=== PATIENT | female | born 1945 | race Caucasian/White ===

== ENCOUNTER → 2017-04-05 | Outpatient (CLI) | payer MEDICARE, MEDICAID ==
[~2017-04-05] VITALS: Ht 30.5 cm; Wt 0.5 kg
[~2017-04-05] MED LIST: ALPR2TAB2 PO; AML5T PO; KETOROLAC TROMETH 30 MG/ML 1ML VIAL IV ONE; KETOROLAC TROMETH 60MG/2ML VIAL IM ONE; MORP15TA PO; ONDANSETRON HCL 4 MG/2 ML VIAL IV ONE; ONDANSETRON HCL 4 MG/2 ML VIAL ONE; PROM25TA5 IM; SODIUM CHLORIDE 0.9% 500 ML IV ONE
[2017-04-05 10:20] VITALS: BP 144/91
[2017-04-05 13:35] VITALS: BP 134/92
== END | disposition home or self-care (01) ==
LOC: CHF HDHVI 10:09
PROVIDERS: ATTEND Internal Medicine Cardiovascular Disease
DX: I50.9 Heart failure, unspecified (principal); R11.2 Nausea with vomiting, unspecified
CPT/HCPCS: 96361; 96372; 96374; 96375; G0463; J1885; J2405; 96360

== ENCOUNTER → 2017-04-08 | Outpatient (CLI) | payer MEDICARE, MEDICAID ==
[~2017-04-08] VITALS: Ht 30.5 cm; Wt 86.2 kg
[~2017-04-08] MED LIST changes: +CYANOCOBALAMIN (B-12) 1000 MCG/1 ML VIAL IM ONE; +CYANOCOBALAMIN (B-12) 1000 MCG/1 ML VIAL ONE; -KETOROLAC TROMETH 30 MG/ML 1ML VIAL IV ONE; -ONDANSETRON HCL 4 MG/2 ML VIAL IV ONE; -ONDANSETRON HCL 4 MG/2 ML VIAL ONE; +SODIUM CHLORIDE 0.9% 1,000 ML IV SCH; -SODIUM CHLORIDE 0.9% 500 ML IV ONE
[2017-04-08 13:10] VITALS: BP 114/90
[2017-04-08 16:29] LABS: Basophils # (auto) 0.1 uL; Basophils % (auto) 0.7 % (0.0-2.0); Eosinophils # (auto) 0.3 uL; Eosinophils % (auto) 3.9 % (0.0-7.0); Hemoglobin 14.7 g/dL (12.2-16.2); Lymphocytes % (auto) 25.6 % (10.0-50.0); Mean Corpuscular Hemoglobin 28.2 pg (28.0-32.0); Mean Corpuscular Hgb Conc. 32.7 g/dL (32.0-36.0); Mean Corpuscular Volume 86.3 fL (80.0-100.0); Mean Platelet Volume 8.3 fL (7.4-10.4); Monocytes # (auto) 0.7 uL; Monocytes % (auto) 9.2 % (0.0-12.0); Neutrophils # (auto) 4.6 uL; Neutrophils % (auto) 60.6 % (37.0-80.0); Platelet Count (auto) 347 10^3/uL (140-450); Red Cell Distribution Width 14.6 % (11.6-16.0); White Blood Cell 7.7 10^3/uL (4.4-10.8)
[2017-04-08 16:39] LABS: Potassium 3.8 mmol/L (3.5-5.1)
[2017-04-08 16:46] LABS: BUN/Creatinine Ratio 14.3; Calcium 9.4 mg/dL (8.5-10.1); Magnesium 2.1 mg/dL (1.6-2.6)
== END | disposition home or self-care (01) ==
LOC: CHF HDHVI 11:14
PROVIDERS: ATTEND Internal Medicine Cardiovascular Disease
DX: I10 Essential (primary) hypertension (principal); D64.9 Anemia, unspecified; E83.42 Hypomagnesemia
CPT/HCPCS: 36415; 80048; 83735; 85025; 96360; 96372; G0463; J1885

== ENCOUNTER → 2017-04-12 | Outpatient (CLI) | payer MEDICARE, MEDICAID ==
[~2017-04-12] MED LIST changes: -CYANOCOBALAMIN (B-12) 1000 MCG/1 ML VIAL IM ONE; -CYANOCOBALAMIN (B-12) 1000 MCG/1 ML VIAL ONE; -SODIUM CHLORIDE 0.9% 1,000 ML IV SCH
[2017-04-12 11:45] VITALS: BP 146/89
[2017-04-12 12:45] VITALS: BP 145/88
== END | disposition home or self-care (01) ==
LOC: LAB 11:25
PROVIDERS: ATTEND Internal Medicine Cardiovascular Disease
DX: I73.9 Peripheral vascular disease, unspecified (principal); I11.0 Hypertensive heart disease with heart failure; I50.9 Heart failure, unspecified; M79.7 Fibromyalgia; R53.83 Other fatigue
CPT/HCPCS: 96372; G0463; J1885

== ENCOUNTER 2017-04-15 19:42 | Emergency (ER) | payer MEDICARE, MEDICAID ==
[~2017-04-15] VITALS: Ht 167.6 cm; Wt 84.8 kg
[~2017-04-15 19:42] MED LIST changes: -KETOROLAC TROMETH 60MG/2ML VIAL IM ONE
[2017-04-15 19:45] VITALS: BP 137/98
[2017-04-15] MEDS ORDERED: cefTRIAXone SOD 1,000 MG VL IM ONE (20:45)
== END 2017-04-15 21:31 | disposition home or self-care (01) ==
LOC: ER 19:45
DX: L02.415 Cutaneous abscess of right lower limb (principal); I10 Essential (primary) hypertension; E78.5 Hyperlipidemia, unspecified; Z88.1 Allergy status to other antibiotic agents; Z88.8 Allergy status to other drugs, medicaments and biological substances; Z88.6 Allergy status to analgesic agent
CPT/HCPCS: 96372; 99283; J0696

== ENCOUNTER 2017-04-28 22:08 | Emergency (ER) | payer MEDICARE, MEDICAID ==
[~2017-04-28] VITALS: Ht 160 cm; Wt 91.2 kg
[2017-04-28 22:35] VITALS: BP 139/90
[2017-04-28 23:13] LABS: Basophils # (auto) 0.1 uL; Basophils % (auto) 0.6 % (0.0-2.0); CONDITION Y; Eosinophils # (auto) 0.3 uL; Eosinophils % (auto) 2.5 % (0.0-7.0); Hematocrit 43.6 % (36.0-46.0); Hemoglobin 14.7 g/dL (12.2-16.2); Lymphocytes % (auto) 23.6 % (10.0-50.0); Mean Corpuscular Hemoglobin 28.4 pg (28.0-32.0); Mean Corpuscular Hgb Conc. 33.6 g/dL (32.0-36.0); Mean Corpuscular Volume 84.4 fL (80.0-100.0); Mean Platelet Volume 7.6 fL (7.4-10.4); Monocytes # (auto) 1.1 uL; Monocytes % (auto) 9.1 % (0.0-12.0); Neutrophils # (auto) 8.1 uL; Neutrophils % (auto) 64.2 % (37.0-80.0); Platelet Count (auto) 334 10^3/uL (140-450); Red Cell Distribution Width 14.3 % (11.6-16.0); White Blood Cell 12.6 10^3/uL (4.4-10.8)
[2017-04-28 23:32] LABS: Albumin 3.6 g/dL (3.4-5.0); BUN/Creatinine Ratio 21.7; Calcium 8.7 mg/dL (8.5-10.1); Potassium 3.4 mmol/L (3.5-5.1)
[2017-04-28 23:42] LABS: Bilirubin, Total 0.4 mg/dL (0.2-1.0); Total Protein 7.5 g/dL (6.4-8.2)
== END 2017-04-29 03:19 | disposition left against medical advice (07) ==
LOC: ER 22:09
DX: L98.9 Disorder of the skin and subcutaneous tissue, unspecified (principal); Z53.21 Procedure and treatment not carried out due to patient leaving prior to being seen by health care provider
CPT/HCPCS: 36415; 80053; 85025

== ENCOUNTER 2017-05-07 20:08 | Emergency (ER) | payer MEDICARE, MEDICAID ==
[~2017-05-07] VITALS: Ht 167.6 cm; Wt 89.8 kg
[2017-05-07 22:13] VITALS: BP 136/93
== END 2017-05-07 23:05 | disposition home or self-care (01) ==
LOC: ER 20:11
DX: L02.415 Cutaneous abscess of right lower limb (principal); E78.5 Hyperlipidemia, unspecified; I10 Essential (primary) hypertension; Z88.1 Allergy status to other antibiotic agents; Z88.6 Allergy status to analgesic agent; Z88.8 Allergy status to other drugs, medicaments and biological substances

== ENCOUNTER 2017-06-29 14:07 | Emergency (ER) | payer MEDICARE, MEDICAID ==
[~2017-06-29] VITALS: Ht 165.1 cm; Wt 79.4 kg
[2017-06-29 14:48] VITALS: BP 139/79
[2017-06-29] MEDS ORDERED: PROMETHAZINE HCL 25 MG/ML 1ML IM ONE (15:45)
[2017-06-29] MEDS ORDERED: MEPERIDINE HCL (50 MG/ML) 1 ML VIAL IM ONE (15:45)
== END 2017-06-29 16:16 | disposition home or self-care (01) ==
LOC: ER 14:07
DX: S46.912A Strain of unspecified muscle, fascia and tendon at shoulder and upper arm level, left arm, initial encounter (principal); S80.02XA Contusion of left knee, initial encounter; G89.29 Other chronic pain; M54.5 Low back pain; E78.5 Hyperlipidemia, unspecified; I10 Essential (primary) hypertension; Z88.6 Allergy status to analgesic agent; Z88.8 Allergy status to other drugs, medicaments and biological substances; W06.XXXA Fall from bed, initial encounter; Y93.89 Activity, other specified; Y99.8 Other external cause status; Y92.89 Other specified places as the place of occurrence of the external cause
CPT/HCPCS: 73030; 96372; 99284; J2175; J2550

== ENCOUNTER 2018-09-06 15:06 | Emergency (ER) | payer MEDICARE, MEDICAID ==
[~2018-09-06] VITALS: Ht 167.6 cm; Wt 84.8 kg
[~2018-09-06 15:06] MED LIST changes: +ATOR20TA PO; +CELE100C82 PO; +OMEP20CA74 PO; -PROM25TA5 IM
[2018-09-06 15:16] VITALS: BP 149/84
[2018-09-06] MEDS ORDERED: KETOROLAC TROMETH 30 MG/ML 1ML VIAL IM ONE (16:45)
== END 2018-09-06 17:25 | disposition home or self-care (01) ==
LOC: ER 15:12
DX: M17.12 Unilateral primary osteoarthritis, left knee (principal); I25.10 Atherosclerotic heart disease of native coronary artery without angina pectoris; E78.5 Hyperlipidemia, unspecified; I10 Essential (primary) hypertension; G43.909 Migraine, unspecified, not intractable, without status migrainosus; Z90.49 Acquired absence of other specified parts of digestive tract; Z88.8 Allergy status to other drugs, medicaments and biological substances; Z79.899 Other long term (current) drug therapy; Z90.710 Acquired absence of both cervix and uterus
CPT/HCPCS: 73562; 96372; 99284; J1885

== ENCOUNTER 2019-10-18 17:44 | Emergency (ER) | payer OTHER, MEDICAID ==
[~2019-10-18] VITALS: Ht 167.6 cm; Wt 80.7 kg
[2019-10-18 19:15] VITALS: BP 156/101
== END 2019-10-18 19:16 | disposition home or self-care (01) ==
LOC: ER 18:01
DX: M62.830 Muscle spasm of back (principal); M54.5 Low back pain; M54.6 Pain in thoracic spine; M54.2 Cervicalgia; R51 Headache; E78.5 Hyperlipidemia, unspecified; I10 Essential (primary) hypertension; Z90.49 Acquired absence of other specified parts of digestive tract; Z90.710 Acquired absence of both cervix and uterus; Z88.1 Allergy status to other antibiotic agents; Z88.6 Allergy status to analgesic agent; Z88.8 Allergy status to other drugs, medicaments and biological substances; Z79.899 Other long term (current) drug therapy; V43.52XA Car driver injured in collision with other type car in traffic accident, initial encounter; Y93.89 Activity, other specified; Y92.488 Other paved roadways as the place of occurrence of the external cause; Y99.8 Other external cause status

== ENCOUNTER 2019-10-19 21:22 | Emergency (ER) | payer OTHER, MEDICAID ==
[~2019-10-19] VITALS: Ht 167.6 cm; Wt 80.7 kg
[2019-10-19 21:43] VITALS: BP 191/128
[2019-10-19] MEDS ORDERED: ACETAMINOPHEN 500 MG TAB PO ONE (21:45)
== END 2019-10-19 23:58 | disposition home or self-care (01) ==
LOC: ER 21:25
DX: S29.012A Strain of muscle and tendon of back wall of thorax, initial encounter (principal); S39.012A Strain of muscle, fascia and tendon of lower back, initial encounter; M48.07 Spinal stenosis, lumbosacral region; E78.5 Hyperlipidemia, unspecified; I10 Essential (primary) hypertension; Z90.49 Acquired absence of other specified parts of digestive tract; Z90.710 Acquired absence of both cervix and uterus; Z88.6 Allergy status to analgesic agent; Z88.8 Allergy status to other drugs, medicaments and biological substances; Z79.899 Other long term (current) drug therapy; V43.52XA Car driver injured in collision with other type car in traffic accident, initial encounter; Y93.89 Activity, other specified; Y92.488 Other paved roadways as the place of occurrence of the external cause; Y99.8 Other external cause status
CPT/HCPCS: 72128; 72131

== ENCOUNTER 2019-10-25 22:26 | Emergency (ER) | payer OTHER, MEDICAID ==
[~2019-10-25] VITALS: Ht 170.2 cm; Wt 80.7 kg
[2019-10-26 01:32] VITALS: BP 156/87
== END 2019-10-26 02:44 | disposition home or self-care (01) ==
LOC: ER 22:31
DX: G89.29 Other chronic pain (principal); M54.5 Low back pain; E78.5 Hyperlipidemia, unspecified; I10 Essential (primary) hypertension; Z86.73 Personal history of transient ischemic attack (TIA), and cerebral infarction without residual deficits; Z90.710 Acquired absence of both cervix and uterus; Z90.49 Acquired absence of other specified parts of digestive tract; Z88.8 Allergy status to other drugs, medicaments and biological substances

== ENCOUNTER 2019-11-23 01:59 | Emergency (ER) | payer OTHER, MEDICAID ==
[~2019-11-23] VITALS: Ht 162.6 cm; Wt 81.6 kg
[2019-11-23] MEDS ORDERED: ONDANSETRON HCL 4 MG/2 ML VIAL IM ONE (04:15)
[2019-11-23] MEDS ORDERED: MORPHINE SULFATE 4 MG/ML SYR/VIAL IM ONE (04:15)
[2019-11-23 04:26] VITALS: BP 146/84
== END 2019-11-23 06:08 | disposition home or self-care (01) ==
LOC: EDUNIT# 01:59 → ER 02:01
DX: M54.16 Radiculopathy, lumbar region (principal); G89.29 Other chronic pain; M54.5 Low back pain; M79.10 Myalgia, unspecified site; I25.10 Atherosclerotic heart disease of native coronary artery without angina pectoris; I10 Essential (primary) hypertension; E78.00 Pure hypercholesterolemia, unspecified; Z90.49 Acquired absence of other specified parts of digestive tract; Z90.710 Acquired absence of both cervix and uterus; Z79.891 Long term (current) use of opiate analgesic; Z79.899 Other long term (current) drug therapy; Z88.8 Allergy status to other drugs, medicaments and biological substances
CPT/HCPCS: 96372; 99283; J2270; J2405

== ENCOUNTER 2019-12-22 16:51 | Emergency (ER) | payer OTHER, MEDICAID ==
[~2019-12-22] VITALS: Ht 170.2 cm; Wt 85.3 kg
[2019-12-22 17:47] VITALS: BP 131/89
[2019-12-22] MEDS ORDERED: MORPHINE SULFATE 4 MG/ML SYR/VIAL IV ONE (18:45)
[2019-12-22] MEDS ORDERED: PROMETHAZINE HCL 25 MG/ML 1ML IV ONE (18:45)
== END 2019-12-22 19:42 | disposition left against medical advice (07) ==
LOC: ER 16:51
DX: M54.5 Low back pain (principal); R25.2 Cramp and spasm; E78.5 Hyperlipidemia, unspecified; I10 Essential (primary) hypertension; Z90.49 Acquired absence of other specified parts of digestive tract; Z90.710 Acquired absence of both cervix and uterus; Z88.6 Allergy status to analgesic agent; Z88.8 Allergy status to other drugs, medicaments and biological substances
CPT/HCPCS: 96372

== ENCOUNTER 2020-02-21 16:34 | Emergency (ER) | payer OTHER, MEDICAID ==
[~2020-02-21] VITALS: Ht 175.3 cm; Wt 86.2 kg
[2020-02-21 20:39] VITALS: BP 108/87
[2020-02-21] MEDS ORDERED: PROMETHAZINE HCL 25 MG/ML 1ML IM ONE (20:45)
[2020-02-21] MEDS ORDERED: MORPHINE SULF INJ 2 MG/ML SYRINGE 1ML IM ONE (20:45)
== END 2020-02-22 00:09 | disposition home or self-care (01) ==
LOC: ER 16:34
DX: M43.06 Spondylolysis, lumbar region (principal); M46.96 Unspecified inflammatory spondylopathy, lumbar region; I25.10 Atherosclerotic heart disease of native coronary artery without angina pectoris; E78.5 Hyperlipidemia, unspecified; I10 Essential (primary) hypertension; Z88.8 Allergy status to other drugs, medicaments and biological substances; Z88.5 Allergy status to narcotic agent
CPT/HCPCS: 72131; 96372; 99284; J2270; J2550

== ENCOUNTER 2020-02-27 08:27 | Emergency (ER) | payer OTHER, MEDICAID ==
[~2020-02-27] VITALS: Ht 167.6 cm; Wt 81.6 kg
[2020-02-27 09:03] VITALS: BP 141/82
[2020-02-27] MEDS ORDERED: KETOROLAC TROMETH 15 mg/ml 1ML VL IM ONE (09:15)
[2020-02-27] MEDS ORDERED: KETOROLAC TROMETH 60MG/2ML VIAL ONE (09:19)
== END 2020-02-27 09:42 | disposition home or self-care (01) ==
LOC: ER 08:27
DX: G89.29 Other chronic pain (principal); M54.5 Low back pain; I10 Essential (primary) hypertension; I25.10 Atherosclerotic heart disease of native coronary artery without angina pectoris; E78.5 Hyperlipidemia, unspecified; Z90.49 Acquired absence of other specified parts of digestive tract; Z90.710 Acquired absence of both cervix and uterus; Z79.899 Other long term (current) drug therapy; Z88.2 Allergy status to sulfonamides; Z88.8 Allergy status to other drugs, medicaments and biological substances
CPT/HCPCS: 96372; 99283; J1885

== ENCOUNTER 2020-03-16 15:15 | Emergency (ER) | payer OTHER, MEDICAID ==
[~2020-03-16] VITALS: Ht 175.3 cm; Wt 91.6 kg
[2020-03-16 15:22] VITALS: BP 149/86
== END 2020-03-16 16:16 | disposition home or self-care (01) ==
LOC: ER 15:15
DX: M48.061 Spinal stenosis, lumbar region without neurogenic claudication (principal); M43.06 Spondylolysis, lumbar region; M47.816 Spondylosis without myelopathy or radiculopathy, lumbar region; F41.9 Anxiety disorder, unspecified

== ENCOUNTER 2020-03-19 07:46 | Emergency (ER) | payer OTHER, MEDICAID ==
[~2020-03-19] VITALS: Ht 175.3 cm; Wt 91.6 kg
[2020-03-19 08:01] VITALS: BP 150/95
[2020-03-19] MEDS ORDERED: KETOROLAC TROMETH 60MG/2ML VIAL IM ONE (08:30)
== END 2020-03-19 09:01 | disposition home or self-care (01) ==
LOC: ER 07:46
DX: M54.5 Low back pain (principal); G89.29 Other chronic pain; F41.1 Generalized anxiety disorder; L23.9 Allergic contact dermatitis, unspecified cause; I25.10 Atherosclerotic heart disease of native coronary artery without angina pectoris; E78.5 Hyperlipidemia, unspecified; I10 Essential (primary) hypertension; Z88.5 Allergy status to narcotic agent; Z88.8 Allergy status to other drugs, medicaments and biological substances
CPT/HCPCS: 96372; 99283; J1885